=== PATIENT | male | born 1945 | race Caucasian/White ===

== ENCOUNTER 2021-10-13 20:37 | Emergency (ER) | payer MEDICARE | END 2021-10-13 23:05 | disposition home or self-care (01) | LOC: CSHERS 20:37 | DX: K56.41 Fecal impaction (principal); K64.4 Residual hemorrhoidal skin tags | CPT/HCPCS: 99283 ==

== ENCOUNTER 2023-06-08 14:09 | Observation (INO) | payer MEDICARE, OTHER ==
[~2023-06-08 14:09] MED LIST: Iopamidol 370 76% 100 ML VIAL ONE
[2023-06-08 14:39] LABS: #Basophils 0.1 10x3/uL (0.0-0.2); #Eosinphils 0.1 10x3/uL (0.0-0.5); #Monocytes 0.5 10x3/uL (0.0-1.1); #Neutrophils 4.3 10x3/uL (1.5-8.4); %Basophils 0.8 % (0.0-2.0); %Eosinophils 1.4 % (0.0-6.0); %Lymphocytes 20.7 % (18.0-47.0); %Neutrophils 68.8 % (40.0-75.0); Hematocrit 41.7 % (38.8-50.0); Hemoglobin 14.3 g/dL (13.5-17.5); Mean Corpuscular HGB CONC 34.3 g/dL (32.0-36.0); Mean Corpuscular Hemoglobin 32.9 pg (27.0-33.0); Mean Corpuscular Volume 95.9 fl (81.2-95.1); Platelet Count 190 10x3/uL (150-450); RBC Distribution Width 12.5 % (11.5-14.5); Red Blood Cell (RBC) Count 4.35 10x6/uL (4.32-5.72); White Blood Cell (WBC) Count 6.2 10x3/uL (3.5-10.5)
[2023-06-08 14:59] LABS: ALT (SGPT) 15 U/L (8-55); AST (SGOT) 19 U/L (5-34); Albumin 3.7 g/dL (3.4-4.8); Alkaline Phosphatase 53 U/L (40-110); Anion Gap 11 mmol/L (10-20); BUN (Urea Nitrogen) 17 mg/dL (8.4-25.7); Bilirubin, Total 0.5 mg/dL (0.2-1.2); Calc. Creatinine Clearance 0 mL/min (70-130); Calcium 8.8 mg/dL (7.8-10.44); Carbon Dioxide 24 mmol/L (23-31); Chloride 108 mmol/L (98-107); Estimated GFR 72; Globulin 2.7 g/dL (2.4-3.5); Glucose 109 mg/dL (83-110); Potassium 4.2 mmol/L (3.5-5.1); Protein, Total 6.4 g/dL (5.8-8.1); Sodium 139 mmol/L (136-145)
[2023-06-08 15:03] LABS: Troponin I Less than 0.010 ng/mL (< 0.028)
[2023-06-08 15:44] LABS: PTT 25.4 sec (22.0-33.0); Prothrombin Time 10.9 sec (9.5-12.1)
[2023-06-08 20:19] VITALS: BMI 27.1
[2023-06-08] MEDS: Atorvastatin Calcium 40 MG TAB PO SCH (21:03)
[2023-06-08] MEDS ORDERED: Melatonin 3 MG TAB PO PRN (21:19)
[2023-06-08] MEDS ORDERED: Acetaminophen 650 MG Suppository PR PRN (21:23)
[2023-06-08] MEDS ORDERED: Ondansetron ODT 4 MG TAB PO PRN (21:23)
[2023-06-08] MEDS ORDERED: hydrALAZINE 20 MG/ML VIAL SLOW IVP PRN (21:23)
[2023-06-08] MEDS ORDERED: Acetaminophen 325 MG TAB PO PRN (21:23)
[2023-06-09 03:52] LABS: #Basophils 0.1 10x3/uL (0.0-0.2); #Eosinphils 0.1 10x3/uL (0.0-0.5); #Monocytes 0.4 10x3/uL (0.0-1.1); #Neutrophils 2.9 10x3/uL (1.5-8.4); %Basophils 1.1 % (0.0-2.0); %Eosinophils 2.6 % (0.0-6.0); %Lymphocytes 24.2 % (18.0-47.0); %Neutrophils 62.9 % (40.0-75.0); Hemoglobin 13.6 g/dL (13.5-17.5); Mean Corpuscular HGB CONC 34.9 g/dL (32.0-36.0); Mean Corpuscular Hemoglobin 32.4 pg (27.0-33.0); Mean Corpuscular Volume 92.9 fl (81.2-95.1); Mean Platelet Volume 9.1 fl (7.4-10.4); Platelet Count 185 10x3/uL (150-450); RBC Distribution Width 12.5 % (11.5-14.5); White Blood Cell (WBC) Count 4.6 10x3/uL (3.5-10.5)
[2023-06-09 04:15] LABS: Anion Gap 10 mmol/L (10-20); BUN (Urea Nitrogen) 16 mg/dL (8.4-25.7); Calc. Creatinine Clearance 90 mL/min (70-130); Calcium 8.6 mg/dL (7.8-10.44); Cardiac Risk 3.5 (Less than 4.5); Chloride 109 mmol/L (98-107); Cholesterol 143 mg/dl (< 200 Desired); Estimated GFR 89; Glucose 100 mg/dL (83-110); HDL Cholesterol 41 mg/dL (>60 Neg Risk); LDL Cholesterol, Calculated 87 mg/dL; Sodium 138 mmol/L (136-145); Triglycerides 76 mg/dL (Less than 150)
[2023-06-09 04:27] LABS: Carbon Dioxide 23 mmol/L (23-31)
[2023-06-09] MEDS: Tamsulosin HCl 0.4 MG CAP PO SCH (08:44)
[2023-06-09] MEDS: Enoxaparin 40 MG (0.4 mL) SYRINGE SC SCH (08:44)
[2023-06-09] MEDS: Aspirin 81 mg Enteric Coated Tablet PO SCH (08:44)
[2023-06-09 12:38] VITALS: TEMP 98.6
[2023-06-09 12:40] VITALS: BP 128/74
[2023-06-09] MEDS ORDERED: Ciprofloxacin 500 MG TAB PO SCH (21:00)
== END 2023-06-09 13:11 | disposition home or self-care (01) ==
LOC: CSHERS 14:09 → CSHTELE 16:53
PROVIDERS: ADMIT Hospitalist; ATTEND Physician Assistant
DX: R47.01 Aphasia (principal); R29.818 Other symptoms and signs involving the nervous system; N40.0 Benign prostatic hyperplasia without lower urinary tract symptoms; Z79.899 Other long term (current) drug therapy; Z90.49 Acquired absence of other specified parts of digestive tract; Z90.89 Acquired absence of other organs
CPT/HCPCS: 70450; 70496; 70498; 70551; 80048; 80053; 80061; 83036; 84443; 84484; 85025 ×2; 85610; 85730; 93005; 93306; 93880; 96372; 97530; 99285; G0378 ×3; 36415; J1650; Q9967

== ENCOUNTER 2023-12-28 07:59 | Outpatient (CLI) | payer MEDICARE, OTHER ==
[2023-12-28 09:04] LABS: #Basophils 0.05 10x3/uL (0.0-0.2); #Eosinphils 0.07 10x3/uL (0.0-0.5); #Monocytes 0.32 10x3/uL (0.0-1.1); %Basophils 1.1 % (0.0-2.0); %Eosinophils 1.5 % (0.0-6.0); %Lymphocytes 28.8 % (18.0-47.0); %Monocytes 6.8 % (0.0-10.0); %Neutrophils 61.4 % (40.0-75.0); Hematocrit 43.7 % (38.8-50.0); Mean Corpuscular HGB CONC 34.3 g/dL (32.0-36.0); Mean Corpuscular Hemoglobin 32.1 pg (27.0-33.0); Mean Corpuscular Volume 93.6 fL (81.2-95.1); Platelet Count 230 10x3/uL (150-450); RBC Distribution Width 12.5 % (11.5-14.5); Red Blood Cell (RBC) Count 4.67 10x6/uL (4.32-5.72); White Blood Cell (WBC) Count 4.7 10x3/uL (3.5-10.5)
[2023-12-28 10:05] LABS: Anion Gap 12 mmol/L (10-20); BUN (Urea Nitrogen) 16 mg/dL (8.4-25.7); Calc. Creatinine Clearance 0 mL/min (70-130); Calcium 9.4 mg/dL (7.8-10.44); Carbon Dioxide 24 mmol/L (23-31); Chloride 107 mmol/L (98-107); Estimated GFR 88; Glucose 89 mg/dL (83-110); Potassium 4.4 mmol/L (3.5-5.1); Sodium 139 mmol/L (136-145)
== END 2023-12-28 08:00 | disposition home or self-care (01) ==
LOC: CSHLAB 07:59
PROVIDERS: ATTEND Surgery
DX: Z01.812 Encounter for preprocedural laboratory examination (principal); K40.20 Bilateral inguinal hernia, without obstruction or gangrene, not specified as recurrent
CPT/HCPCS: 80048; 85025

== ENCOUNTER 2024-01-01 09:08 | Day surgery (SDC) | payer MEDICARE, OTHER ==
[2023-12-28 08:41] VITALS: BMI 25.7
[2024-01-01] MEDS ORDERED: Bupivacaine/Epinephrine 0.25% 30 ML VIAL ONE (09:49)
[2024-01-01] MEDS ORDERED: PROPOFOL 20 ML ONE (11:55)
[2024-01-01] MEDS ORDERED: Lidocaine 1% PF 5 ML VIAL ONE (12:01)
[2024-01-01] MEDS ORDERED: Ketorolac Tromethamine 30 MG (1 mL) VIAL ONE (12:01)
[2024-01-01] MEDS ORDERED: Rocuronium Bromide 10 MG/ML (10ML VIAL) ONE (12:01)
[2024-01-01] MEDS ORDERED: CEFAZOLIN 2 GM VIAL ONE (12:10)
[2024-01-01] MEDS ORDERED: fentaNYL 50 mcg/mL 1 mL Vial ONE ×3 (12:24→14:15)
[2024-01-01] MEDS ORDERED: Dexamethasone 4 mg/ml Vial ONE (12:54)
[2024-01-01] MEDS ORDERED: Ondansetron PF 4 MG/2 ML Vial ONE (12:54)
[2024-01-01] MEDS ORDERED: PHENYLEPHRINE-NS 100 MCG/ML 10 ML SYRINGE ONE (13:19)
[2024-01-01] MEDS ORDERED: SUGAMMADEX SODIUM 200 MG/2 ML VIAL ONE (13:43)
[2024-01-01] MEDS ORDERED: HYDROcodone/Acetaminophen 5/325 mg Tablet ONE (14:52)
== END 2024-01-01 15:30 | disposition home or self-care (01) ==
LOC: CSHSDC 09:08
PROVIDERS: ATTEND Surgery
PROC: 0YUA4JZ Supplement Bilateral Inguinal Region with Synthetic Substitute, Percutaneous Endoscopic Approach (ICD-10-PCS; principal; 2024-01-01)
DX: K40.20 Bilateral inguinal hernia, without obstruction or gangrene, not specified as recurrent (principal); N40.0 Benign prostatic hyperplasia without lower urinary tract symptoms; E78.00 Pure hypercholesterolemia, unspecified; Z90.89 Acquired absence of other organs; Z90.49 Acquired absence of other specified parts of digestive tract; Z98.890 Other specified postprocedural states; Z98.49 Cataract extraction status, unspecified eye; Z79.899 Other long term (current) drug therapy; Z87.891 Personal history of nicotine dependence
CPT/HCPCS: 49650; C1781 ×2; J1100; J1885; J2405; J2704; J3010